=== PATIENT | female | born 1965 | race Caucasian/White ===

== ENCOUNTER 2021-05-11 15:17 | Emergency (ER) | payer OTHER, SELFPAY ==
[~2021-05-11] VITALS: Ht 160 cm; Wt 75.7 kg
[2021-05-11 15:17] VITALS: BP_SYST 123
--- NOTE | 2021-05-11 15:17 | NUR ---
BROUGHT IN BY [facility] FROM [facility], PLACED IN HALLWAY AND TRIAGED. AWAITING ER BED
--- NOTE | 2021-05-11 18:01 | NUR ---
Placed in room 6 er medics. Per report received from charge attendant, patient reporting SOB with [facility] COPD. Pt awake, alert and oriented x 3. Placed on alarm security or surveillance monitor. Will continue to monitor. Addendum: 05/11/21 at 1803 by [email or web address] *per
--- NOTE | 2021-05-11 18:01 | NUR ---
PLACED IN BED #5 AND REPORT GIVEN TO AIMEE
--- NOTE | 2021-05-11 18:05 | NUR ---
Patient reporting feeling "bloated" which is causing her to feel SOB. UA to be sent since pt is stating she thinks she has a "bladder infection."
[2021-05-11 18:09] LABS: BASOPHILS # (AUTO) 0.1 K/uL (0.0-0.2); BASOPHILS % (AUTO) 1.1 % (0.0-2.0); EOSINOPHILS # (AUTO) 0.4 K/uL (0.0-0.4); EOSINOPHILS % (AUTO) 4.3 % (0.0-4.0); HEMATOCRIT 44.4 % (36-48); HEMOGLOBIN 14.5 g/dL (12.0-16.0); LYMPHOCYTES # (AUTO) 2.3 K/uL (1.0-5.5); LYMPHOCYTES % (AUTO) 25.9 % (20.5-51.5); MEAN CORPUSCULAR HEMOGLOBIN 29 pg (27-31); MEAN CORPUSCULAR HGB CONC 33 % (32-36); MEAN CORPUSCULAR VOLUME 88 fL (79.0-98.0); MONOCYTES # (AUTO) 0.6 K/uL (0.0-1.0); NEUTROPHILS # (AUTO) 5.4 K/uL (1.8-7.7); NEUTROPHILS % (AUTO) 61.7 % (40.0-70.0); PLATELET COUNT (AUTO) 296 K/uL (130-430); RED BLOOD CELL COUNT(AUTO) 5.05 MIL/uL (4.2-6.2); RED CELL DISTRIBUTION WIDTH 13.9 % (9.0-15.0); WHITE BLOOD COUNT (AUTO) 8.8 K/uL (4.8-10.8)
[2021-05-11] MEDS ORDERED: HYDROcodone/ACETAMIN 5-325 MG TAB (NORCO/ VICODIN) PO ONE (18:15)
[2021-05-11 18:31] LABS: CALCIUM 9.4 mg/dL (8.4-11.0); CREATININE 1.26 mg/dL (0.55-1.30); POTASSIUM 4.1 mmol/L (3.5-5.1)
[2021-05-11 18:39] LABS: BILIRUBIN,URINE NEGATIVE (NEGATIVE); BLOOD, URINE 1+ (NEGATIVE); CLARITY/URINE CLOUDY (CLEAR); COLOR,URINE YELLOW (YELLOW); GLUCOSE,URINE NEGATIVE (NEGATIVE); KETONES,URINE NEGATIVE (NEGATIVE); LEUKOCYTE ESTERASE ,URINE 3+ (NEGATIVE); NITRITE, URINE POSITIVE (NEGATIVE); PROTEIN URINE NEGATIVE (NEGATIVE); UROBILINOGEN,URINE 0.2 (0.2-1.0)
--- NOTE | 2021-05-11 18:39 | NUR ---
SpO2 90% on room air
[2021-05-11 18:42] LABS: ALBUMIN 4.1 g/dL (3.4-4.8); TOTAL BILIRUBIN 0.3 mg/dL (0.0-1.0)
[2021-05-11 18:48] LABS: BACTERIA,URINE MODERATE /HPF (None Seen); MUCUS,URINE None Seen /LPF (None Seen); URINE AMORPHOUS PHOSPHATES 1+ /HPF (None Seen); WBC,URINE >100 /HPF (0-3)
--- NOTE | 2021-05-11 18:53 | NUR ---
Medics placed patient on 2L oxygen via nasal cannula but she is able to maintain SpO2 on room air 90%-92%
--- NOTE | 2021-05-11 19:07 | NUR ---
Report given to Gagandeep RODRIGES to assume care
[2021-05-11 19:08] VITALS: BP_SYST 123
[2021-05-11] MEDS ORDERED: cefTRIAXone 1 GM in D5W 50 ML IV ONE (19:30)
[2021-05-11] MEDS ORDERED: ASPIRIN 81 MG TAB.CHEW PO ONE (19:30)
[2021-05-11] MEDS ORDERED: cefTRIAXone 1 GM VIAL ONE (19:33)
[2021-05-11] MEDS ORDERED: CEPH-548 PO (19:57)
[2021-05-11] MEDS ORDERED: TRAM50TA2 PO (19:58)
--- NOTE | 2021-05-11 20:21 | NUR ---
Patient given written and verbal discharge instructions and verbalizes understanding. ER MD discussed with patient the results and treatment provided. Patient in stable condition. ID arm band removed. IV catheter removed intact and dressing applied, no active bleeding. Rx of Rocephin and Ultram given. Patient educated on pain management and to follow up with PMD. Pain Scale 0/10 Opportunity for questions provided and answered. Medication side effect fact sheet provided.
== END 2021-05-11 20:21 | disposition left against medical advice (07) ==
LOC: SED 15:17
DX: N39.0 Urinary tract infection, site not specified (principal); R06.02 Shortness of breath; J44.9 Chronic obstructive pulmonary disease, unspecified; Z79.899 Other long term (current) drug therapy; Z20.822 Contact with and (suspected) exposure to COVID-19
CPT/HCPCS: 36415; 71045; 80053; 81000; 82550; 84484; 85025; 87040; 87086; 87426; 93005; 96365; 99285; J0696